=== PATIENT | female | born 1950 | race Caucasian/White ===

== ENCOUNTER → 2018-10-19 | Outpatient (CLI) | payer OTHER ==
[~2018-10-19] VITALS: Ht 162.6 cm; Wt 86.6 kg
[~2018-10-19] MED LIST: AMOX1TAB5 PO; COZAAR50 MG; COZAAR50 MG PO; FLAGYL500MG PO; HUMIRA PEN40 MG/0.1 SUBCUTANEO; INTESTINEX680 M1 PO; LEVSIN/SL0.125 MG SL; NORVASC2.5 MG; NORVASC5 MG; NORVASC5 MG PO; PERCOCET 5-3251 EACH PO; PROTONIX40 MG PO; ULTRACET PO
== END | disposition home or self-care (01) ==
LOC: EKG 10:12
DX: Z01.810 Encounter for preprocedural cardiovascular examination (principal)

== ENCOUNTER 2018-10-22 14:53 | Inpatient (IN) | payer OTHER ==
[~2018-10-22] VITALS: Ht 162.6 cm; Wt 191.0 kg
[~2018-10-22 14:53] MED LIST changes: -COZAAR50 MG; -NORVASC2.5 MG; -PERCOCET 5-3251 EACH PO
[2018-10-22] MEDS ORDERED: NORVASC2.5 MG (15:49)
[2018-10-22] MEDS ORDERED: COZAAR50 MG (15:49)
--- NOTE | 2018-10-22 15:49 | NUR ---
SE RECIBE PTE. FEMENINA ALERTA CONCIENTE Y ORIENTADA ACOMPANADA DE FAMILIAR QUE REFIERE DOLOR ABDOMINAL LADO REINALDO, REFIERE LA KAYLA A OPERAR EL LUNES Y LE CANCELARON OPERACION.
--- NOTE | 2018-10-22 16:52 | NUR ---
MS FOHL ORIENTA PTE SOBRE TX MEDICO EL CUAL REFIERE ENTENDER.SE LE EXTRAEN MUESTRAS,SE CANALIZA Y SE ADMINISTRA MEDICAMENTO CHANTALE ORDEN MEDICA.SE NOTIFICA CT.
--- NOTE | 2018-10-22 17:39 | NUR ---
PTE REHUZA MEDICAMENTO DEMEROL PORQUE REFIERE QUE NO PRESENTA DOLOR.
[2018-10-31] MEDS ORDERED: INTESTINEX680 M1 PO (13:09)
[2018-10-31] MEDS ORDERED: PERCOCET 5-3251 EACH PO (13:09)
== END 2018-11-01 09:48 | disposition home or self-care (01) | DRG 329 ==
LOC: ER 14:53 → SURG 21:17
PROVIDERS: Surgery; ADMIT Internal Medicine
PROC: BW21ZZZ Computerized Tomography (CT Scan) of Abdomen and Pelvis (ICD-10-PCS; 2018-10-22)
PROC: 0DTJ4ZZ Resection of Appendix, Percutaneous Endoscopic Approach (ICD-10-PCS; 2018-10-26)
PROC: 0DJD8ZZ Inspection of Lower Intestinal Tract, Via Natural or Artificial Opening Endoscopic (ICD-10-PCS; 2018-10-26)
PROC: 0DTN4ZZ Resection of Sigmoid Colon, Percutaneous Endoscopic Approach (ICD-10-PCS; principal; 2018-10-26 11:00)
DX: K57.20 Diverticulitis of large intestine with perforation and abscess without bleeding (principal); A41.89 Other specified sepsis; K35.890 Other acute appendicitis without perforation or gangrene; M96.89 Other intraoperative and postprocedural complications and disorders of the musculoskeletal system; I10 Essential (primary) hypertension